=== PATIENT | male | born 1930 | race Caucasian/White ===

== ENCOUNTER → 2016-07-24 | Outpatient (CLI) | payer MEDICARE, OTHER ==
[2015-12-29 16:59] VITALS: BP 158/71
[~2016-07-24] MED LIST: AFLI2VIA IO; AMLO10TA2 PO; CALC-98 PO; CALC1TAB75 PO; CLON1PAT2 TD; FLEC100T PO; FURO-68 PO; FURO-69 PO; HYDR-2868 PO; HYDR-971 PO; HYDR1TAB10 PO; MAG DELAY64 MG PO; MECL25TA3 PO; NEBI10TA3 PO; OXYC1TAB PO; OXYC500S PO; OXYC5CAP3 PO; POTA20PA PO; POTA20PA8 PO; SIMV10TA PO; TAMS0.4C97 PO; VALS320T2 PO; VALS80TA3 PO; VIT1TABL34 PO; VITA1TAB3 PO; WARF1POW MC; WARF1TAB PO; WARF1TAB7 PO; WARF3TAB7 PO; WARF4TAB7 PO; WARF5TAB7 PO; WARF6TAB PO; WARF6TAB7 PO; ZOLP5TAB PO; magnesium
--- NOTE | 2016-07-24 16:11 | RAD ---
Indication: Pulmonary infiltrates. Technique: Axial images and coronal and sagittal reformatted images are provided. Comparison is from December 15, 2015. One or more of the following individualized dose reduction techniques were utilized for this examination: 1. Automated exposure control 2. Adjustment of the mA and/or kV according to patient size 3. Use of iterative reconstruction technique Findings: There is linear atelectasis or scarring in the lung bases. There is minimal apical scarring. There is granulomatous disease. There is a pulmonary nodule with groundglass halo in the left upper lobe on image 46 measuring 6 mm. Bandlike atelectasis or scarring is noted in the left upper lobe as well. No additional nodule is identified. There is no consolidation. There is no pleural effusion. Central airways are patent. There is atheromatous disease in the thoracic aorta. There is minimal coronary artery calcification. The heart is not enlarged. Calcified left hilar lymph nodes are noted. There is no definite hilar or mediastinal adenopathy on this noncontrast study. There is mild fatty infiltration of the liver. There are degenerative changes in the spine. Nodular densities noted previously in the left lung base have resolved. Impression: 1. Left upper lobe nodule may be inflammatory given groundglass halo, 3 month follow-up would be recommended per Fleischner Society. Finding is new from prior. 2. Linear band of atelectasis or scarring in the left upper lobe is stable. Apical scarring is stable. 3. Granulomatous disease.
== END | disposition home or self-care (01) ==
LOC: CT 14:07
PROVIDERS: ATTEND Internal Medicine Pulmonary Disease
DX: R91.8 Other nonspecific abnormal finding of lung field (principal); Z82.49 Family history of ischemic heart disease and other diseases of the circulatory system; Z87.891 Personal history of nicotine dependence
CPT/HCPCS: 71250

== ENCOUNTER → 2016-07-24 | Outpatient (CLI) | payer MEDICARE, OTHER ==
[2015-12-29 16:59] VITALS: BP 158/71
--- NOTE | 2016-07-24 16:23 | RAD ---
Indication: Hematuria. Technique: Renal ultrasound was performed. No comparison is available. Findings: Both kidneys measure at least 10.2 cm in length. Simple cysts in the left kidney measure up to 19 mm in size. Echogenic foci within the kidneys could represent vascular calcifications or nonobstructing stones in the collecting systems. No pelvicaliectasis is apparent. Bladder is only mildly distended and grossly unremarkable. Prostate calcification is noted. Impression: 1. Simple cysts in the left kidney. 2. Small echogenic foci within the kidneys could be calcifications, either vascular or nonobstructing renal calculi.
== END | disposition home or self-care (01) ==
LOC: US 14:03
PROVIDERS: ATTEND Family Medicine
DX: M54.9 Dorsalgia, unspecified (principal); N28.1 Cyst of kidney, acquired
CPT/HCPCS: 76770

== ENCOUNTER 2017-02-19 16:57 | Emergency (ER) | payer MEDICARE, OTHER ==
[~2017-02-19] VITALS: Ht 181.6 cm; Wt 88.0 kg
[2017-02-19 16:57] VITALS: BP 185/79
[~2017-02-19 16:57] MED LIST changes: +OXYC5CAP PO; -OXYC5CAP3 PO; +POTA20PA21 PO; -POTA20PA8 PO; -WARF1TAB PO; +WARF1TAB74 PO
--- NOTE | 2017-02-19 18:27 | PHYS DOC ---
Past History Past Medical History: A-Fib, Hypertension, Prostatitis, TIA Past Surgical History: Appendectomy, TURP, Other Smoking: Non-smoker Alcohol Use: None Drug Use: None Adult General Chief Complaint Chief Complaint: POST-OP PROBLEM HPI HPI Patient is a 86 year old M who presents with left-sided facial "zinging pain". He did have a procedure including a biopsy and skin graft in the left ear 3 days ago. Starting this morning he has had episodes of pain lasting seconds that are not associated with any other symptoms. His pain is localized and does not radiate. He has no drainage, fever or other signs of infection Review of Systems Review of Systems Constitutional: Denies fever or chills [] Eyes: Denies change in visual acuity, redness, or eye pain [] HENT: Denies nasal congestion or sore throat [] Respiratory: Denies cough or shortness of breath [] Cardiovascular: No additional information not addressed in HPI [] GI: Denies abdominal pain, nausea, vomiting, bloody stools or diarrhea [] : Denies dysuria or hematuria [] Musculoskeletal: Denies back pain or joint pain [] Integument: Negative except history of present illness Neurologic: Denies headache, focal weakness or sensory changes [] Endocrine: Denies polyuria or polydipsia [] Family History Family History Noncontributory Current Medications Current Medications Medications reviewed Allergies Allergies Allergies Coded Allergies Type Severity Reaction Last Updated Verified Penicillins Allergy Severe 05/13/15 Yes Physical Exam Physical Exam Constitutional: Well developed, well nourished, no acute distress, non-toxic appearance. [] HENT: Normocephalic, left ear: Mild swelling noted around the pinna without obvious signs of infection. No drainage was noted. Wilfrido denied any symptoms at this time. Eyes: PERRLA, EOMI, conjunctiva normal, no discharge. [] Neck: Normal range of motion, no tenderness, supple, no stridor. [] Cardiovascular:Heart rate regular rhythm, Lungs & Thorax: Bilateral breath sounds clear to auscultation [] Neurologic: Alert and oriented X 3, normal motor function, normal sensory function, no focal deficits noted. [] Psychologic: Affect normal, judgement normal, mood normal. [] Current Patient Data Vital Signs Vital Signs Date Time Temp Pulse Resp B/P (MAP) Pulse Ox O2 Delivery O2 Flow Rate FiO2 02/19/17 16:57 98.4 68 18 94 Room Air EKG EKG [] Radiology/Procedures Radiology/Procedures His dressing was changed Course & Med Decision Making Course & Med Decision Making Pertinent Labs and Imaging studies reviewed. (See chart for details) [] Dragon Disclaimer Dragon Disclaimer This chart was dictated in whole or in part using Voice Recognition software in a busy, high-work load, and often noisy Emergency Department environment. It may contain unintended and wholly unrecognized errors or omissions. Departure Departure: Impression: Primary Impression: Visit for wound check Disposition: HOME, SELF-CARE Condition: STABLE Referrals: WM MONCADA (PCP) Patient Instructions: Wound Check Additional Instructions: Wilfrido was seen in the emergency room for pain after a dermatologic procedure. No emergency medical condition was found in history of physical exam. His wound was visualized and redressed. 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 Also advised return the emergency room if he develops new or worsening symptoms. CARLA SUAREZ MD Feb 19, 2017 18:27
== END 2017-02-19 19:00 | disposition home or self-care (01) ==
LOC: ER 16:57
DX: Z48.01 Encounter for change or removal of surgical wound dressing (principal); G89.18 Other acute postprocedural pain; H93.8X2 Other specified disorders of left ear; I10 Essential (primary) hypertension; I48.91 Unspecified atrial fibrillation; Z86.73 Personal history of transient ischemic attack (TIA), and cerebral infarction without residual deficits; Z88.0 Allergy status to penicillin
CPT/HCPCS: 99282

== ENCOUNTER → 2017-02-20 | Outpatient (CLI) | payer MEDICARE, OTHER ==
[2017-02-19 16:57] VITALS: BP 185/79
--- NOTE | 2017-02-20 16:00 | RAD ---
Indication pulmonary infiltrates. Axial noncontrast images of the chest were obtained and are compared to an examination 07/24/2016. Imaging through the upper abdomen is unremarkable. The thoracic aorta is grossly normal. Significant hilar or mediastinal adenopathy is not seen. Previously seen nodule in the left upper lobe is no longer apparent. The nodule, previously, was likely inflammatory in nature. Some pleural-parenchymal scarring in the left upper lobe has a stable appearance. There is some slight pleural-parenchymal scarring at the lung apices appearing similar. An acute finding in the chest is not seen. There is no dominant soft tissue mass. IMPRESSION: No acute finding apparent in the chest. Previously seen small nodule in the left upper lobe is no longer apparent and likely was inflammatory on the previous exam. Stable scarring in the left upper lobe and at the lung apices. PQRS Compliance Statement: One or more of the following individualized dose reduction techniques were utilized for this examination: 1. Automated exposure control 2. Adjustment of the mA and/or kV according to patient size 3. Use of iterative reconstruction technique
== END | disposition home or self-care (01) ==
LOC: CT 13:49
PROVIDERS: ATTEND Internal Medicine Pulmonary Disease
DX: J98.4 Other disorders of lung (principal); R91.1 Solitary pulmonary nodule; R91.8 Other nonspecific abnormal finding of lung field
CPT/HCPCS: 71250

== ENCOUNTER → 2017-02-20 | Outpatient (CLI) | payer MEDICARE, OTHER ==
[2017-02-19 16:57] VITALS: BP 185/79
--- NOTE | 2017-02-20 15:42 | RAD ---
Indication benign prostatic hypertrophy. Grayscale imaging targeted to the kidneys was performed. The right kidney measures 10.7 x 5.6 x 5.3 cm. No hydronephrosis or mass is seen. The left kidney measures 10.5 x 5.4 x 5.8 cm. No hydronephrosis or solid mass is seen. There are 2 hypoechoic masses, compatible with cysts, occupying the left kidney the largest measuring approximately 2 cm. The urinary bladder appears grossly normal. Mild enlargement of the prostate was seen. IMPRESSION: Normal right kidney. Simple cysts seen associated with the left kidney. No hydronephrosis is seen on either side.
== END | disposition home or self-care (01) ==
LOC: US 13:50
PROVIDERS: ATTEND Urology
DX: N28.1 Cyst of kidney, acquired (principal); N40.1 Benign prostatic hyperplasia with lower urinary tract symptoms; R33.8 Other retention of urine; R91.8 Other nonspecific abnormal finding of lung field
CPT/HCPCS: 76770

== ENCOUNTER → 2017-03-27 | Outpatient (CLI) | payer MEDICARE, OTHER ==
--- NOTE | 2017-03-27 16:35 | RAD ---
Left neck ultrasound, 03/27/2017: History: Upper left neck swelling The area of clinical concern in the region of the angle of the mandible was carefully scanned. A normal-sized 6 x 4 mm lymph node is seen. No enlarged lymph nodes, mass or abnormal fluid collection was seen in this region.
== END | disposition home or self-care (01) ==
LOC: US 13:37
PROVIDERS: ATTEND Physician Assistant
DX: R59.0 Localized enlarged lymph nodes (principal)
CPT/HCPCS: 76536

== ENCOUNTER → 2017-04-23 | Outpatient (CLI) | payer MEDICARE, OTHER ==
--- NOTE | 2017-04-23 15:46 | RAD ---
Indication: Back and hip pain. Technique: AP pelvis and lateral view of each hip is provided. Findings: Bony pelvis appears intact. Mild osteoarthritis is noted in each hip. No fracture or dislocation is identified. Joint space within both hips is maintained. Sclerotic lesion in the right ilium could be small bone island. 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 No evidence of an acute fracture.
--- NOTE | 2017-04-23 15:48 | RAD ---
Indication: Back pain. Technique: 3 views of the lumbosacral spine are submitted for review. No comparison is available. Findings: There is mild anterior wedging of L1 and L2. There is no acute fracture line apparent. There is prominent endplate spurring at L1-L2. There is also endplate spurring throughout the remainder of the lumbar spine. There is facet hypertrophy which is greatest at L4-L5 and L5-S1. There is no malalignment. There is bone demineralization. There are vascular calcifications. Impression: L1 and L2 compression fractures are favored to be chronic. If there is concern for acute fracture, consider MRI.
== END | disposition home or self-care (01) ==
LOC: PMG 13:56
PROVIDERS: ATTEND Physician Assistant
DX: M48.56XA Collapsed vertebra, not elsewhere classified, lumbar region, initial encounter for fracture (principal); M53.86 Other specified dorsopathies, lumbar region; M16.10 Unilateral primary osteoarthritis, unspecified hip
CPT/HCPCS: 72100; 73521

== ENCOUNTER → 2017-07-03 | Outpatient (CLI) | payer MEDICARE, OTHER ==
[~2017-07-03] MED LIST changes: +WARF-31 PO; +WARF1TAB69 PO; -WARF1TAB7 PO; +WARF3TAB50 PO; -WARF3TAB7 PO; -WARF5TAB7 PO
--- NOTE | 2017-07-03 14:40 | RAD ---
Left hip, 2 views, 07/03/2017: History: Hip pain Comparison is made to a study from 04/23/2017. There is mild unchanged narrowing of the right hip joint with mild marginal spurring. No fracture or dislocation is identified. The periarticular soft tissues are unremarkable. IMPRESSION: 1. Mild degenerative change at the left hip joint. 2. No acute bony abnormality is detected.
== END | disposition home or self-care (01) ==
LOC: PMG 14:14
PROVIDERS: ATTEND Physician Assistant
DX: M16.12 Unilateral primary osteoarthritis, left hip (principal)
CPT/HCPCS: 73502

== ENCOUNTER → 2017-07-08 | Outpatient (CLI) | payer MEDICARE, OTHER ==
--- NOTE | 2017-07-08 16:59 | CARD ---
MR#: [id number] Date of Study: 07/08/2017 Ordering Physician: DEBORAH LEONARDO, Referring Physician: DEBORAH LEONARDO, Tech: Saranya Grigsby RDCS APPROVED REPORT EXAM: Two-dimensional and M-mode echocardiogram with Doppler and color Doppler. Other Information Quality : Good INDICATION Atrial Fibrillation 2D DIMENSIONS RVDd3.5 (2.9-3.5cm)Left Atrium(2D)3.6 (1.6-4.0cm) IVSd1.4 (0.7-1.1cm)Aortic Root(2D)2.7 (2.0-3.7cm) LVDd5.4 (3.9-5.9cm)LVOT Diameter2.2 (1.8-2.4cm) PWd1.0 (0.7-1.1cm)LVDs3.9 (2.5-4.0cm) FS (%) 27.7 %SV75.4 ml LVEF(%)55.0 (>50%) Aortic Valve AoV Peak Gerry.110.2cm/sAoV VTI21.4cm AO Peak GR.4.9mmHgLVOT Peak Gerry.111.1cm/s LVOT VTI 22.74cmAO Mean GR.3mmHg LIZETH (VMAX)3.42kw4MOE (VTI)3.96cm2 Mitral Valve MV E Dcjfzafy64.6cm/sMV DECEL YJOI321ym MV A Eyeehdio00.2cm/sE/A Ratio0.6 Tricuspid Valve TR P. Ldhffhic689ut/sRAP GKAVJAAH2gdFb TR Peak Gr.94pyJeRRMP93xzAx Pulmonary Vein S1 Zecfuudb74.1cm/sD2 Xyhlctzf04.6cm/s LEFT VENTRICLE The left ventricle is normal size. There is mild asymmetric septal hypertrophy. The left ventricular systolic function is normal and the ejection fraction is within normal range. The Ejection Fraction i s 55-60%. There is normal LV segmental wall motion. Transmitral Doppler flow pattern is Grade I-abnor mal relaxation pattern. RIGHT VENTRICLE The right ventricle is normal size. The right ventricular systolic function is normal. ATRIA The left atrium size is normal. The right atrium size is normal. The interatrial septum is intact wit h no evidence for an atrial septal defect or patent foramen ovale as noted on 2-D or Doppler imaging. AORTIC VALVE The aortic valve is not well visualized. Doppler and Color Flow revealed no significant aortic regurg itation. There is no significant aortic valvular stenosis. MITRAL VALVE The mitral valve is calcified but opens well. There is no evidence of mitral valve prolapse. There is no mitral valve stenosis. Doppler and Color-flow revealed trace mitral regurgitation. TRICUSPID VALVE The tricuspid valve is normal in structure and function. Doppler and Color Flow revealed trace tricus pid regurgitation. The PA pressure was estimated at 28 mmHg. There is no tricuspid valve stenosis. PULMONIC VALVE The pulmonic valve is not well visualized. Doppler and Color Flow revealed no pulmonic valvular regur gitation. There is no pulmonic valvular stenosis. GREAT VESSELS The aortic root is normal in size. The ascending aorta is not well seen. The IVC is normal in size an d collapses >50% with inspiration. PERICARDIAL EFFUSION There is no evidence of significant pericardial effusion. Critical Notification Critical Value: No <Conclusion> The left ventricle is normal size. The left ventricular systolic function is normal and the ejection fraction is within normal range. The Ejection Fraction is 55-60%. There is mild asymmetric septal hypertrophy. There is no significant aortic valvular stenosis. Doppler and Color Flow revealed no significant aortic regurgitation. Doppler and Color-flow revealed trace mitral regurgitation. Doppler and Color Flow revealed trace tricuspid regurgitation. The PA pressure was estimated at 28 mmHg. Signed by : Adelso Ding MD Electronically Approved : 07/08/2017 16:59:07
== END | disposition home or self-care (01) ==
LOC: ECHO 10:48
PROVIDERS: ATTEND Internal Medicine Cardiovascular Disease
DX: I48.0 Paroxysmal atrial fibrillation (principal); I51.7 Cardiomegaly
CPT/HCPCS: 93306

== ENCOUNTER → 2017-07-17 | Outpatient (CLI) | payer MEDICARE, OTHER ==
[~2017-07-17] MED LIST changes: +BUPIVACAINE MPF 0.25% 10 ML VIAL. ONE; +IOHEXOL 300 MG/ML 50 ML VIAL. ONE; +LIDOCAINE 1% PF 30 ML VIAL. ONE; +MIDAZOLAM HCL PF 2 MG/2 ML VIAL. ONE; +methylPREDNISolone ACETATE 80 MG/ML VIAL. ONE
== END | disposition home or self-care (01) ==
LOC: SURG 13:50
PROVIDERS: ATTEND Anesthesiology Pain Medicine
DX: M16.12 Unilateral primary osteoarthritis, left hip (principal); I10 Essential (primary) hypertension; I48.0 Paroxysmal atrial fibrillation; Z88.0 Allergy status to penicillin; I50.32 Chronic diastolic (congestive) heart failure; G47.33 Obstructive sleep apnea (adult) (pediatric); N40.0 Benign prostatic hyperplasia without lower urinary tract symptoms; G62.9 Polyneuropathy, unspecified; Z85.828 Personal history of other malignant neoplasm of skin; Z79.01 Long term (current) use of anticoagulants; Z79.899 Other long term (current) drug therapy; Z90.49 Acquired absence of other specified parts of digestive tract; Z98.890 Other specified postprocedural states; Z87.891 Personal history of nicotine dependence; Z79.82 Long term (current) use of aspirin
CPT/HCPCS: 20610; 77002; 99152; J1040; J2001; J2250; J3010; J3490; Q9967; 20611

== ENCOUNTER → 2018-02-17 | Outpatient (CLI) | payer MEDICARE, OTHER ==
[~2018-02-17] MED LIST changes: -AMLO10TA2 PO; +AMLO10TA6 PO; -BUPIVACAINE MPF 0.25% 10 ML VIAL. ONE; -IOHEXOL 300 MG/ML 50 ML VIAL. ONE; -LIDOCAINE 1% PF 30 ML VIAL. ONE; -MIDAZOLAM HCL PF 2 MG/2 ML VIAL. ONE; -POTA20PA PO; +POTA20PA30 PO; +WARF4TAB64 PO; -WARF4TAB7 PO; +WARF6TAB47 PO; -WARF6TAB7 PO; -methylPREDNISolone ACETATE 80 MG/ML VIAL. ONE
--- NOTE | 2018-02-17 15:08 | RAD ---
CT of the chest without contrast 02/17/2018 INDICATION: Dry cough. History of pulmonary infiltrates. COMPARISON STUDY: CT of the chest without contrast February 20, 2017 Discussion: Multidetector CT imaging of the chest was performed without the admission of IV contrast. Heart size is normal. No significant pericardial effusion is identified. Scattered mediastinal lymph nodes are noted the appearance is unchanged from comparison study. Left perihilar lymph nodes are small, partially calcified. Findings most commonly reflect prior granulomatous disease. There is no pneumothorax or pleural effusion. Apical scarring is noted bilaterally. Large calcified granuloma is seen in the apical left upper lobe. Linear opacities in the left upper lobe are also stable from prior examination and likely reflects scarring. Mild scarring is seen in the lingula. No acute appearing infiltrate is identified. Mild right middle lobe and base of the right lower lobe scarring is seen. Limited visualization of the upper abdomen demonstrates no acute abnormality. No evidence of acute osseous abnormality is seen. IMPRESSION: Stable appearance of the chest without evidence of acute cardiopulmonary process. CT DOSING PQRS STATEMENT: One or more of the following individualized dose reduction techniques were utilized for this examination: 1. Automated exposure control 2. Adjustment of the mA and/or kV according to patient size 3. Use of iterative reconstruction technique Electronically signed by: Chito Hood MD (02/17/2018 3:05 PM) [id number]
== END | disposition home or self-care (01) ==
LOC: CT 13:08
PROVIDERS: ATTEND Internal Medicine Pulmonary Disease
DX: J84.10 Pulmonary fibrosis, unspecified (principal); R05 Cough; R91.8 Other nonspecific abnormal finding of lung field
CPT/HCPCS: 71250

== ENCOUNTER 2018-04-13 14:44 | Emergency (ER) | payer MEDICARE, OTHER ==
[~2018-04-13] VITALS: Ht 181.6 cm; Wt 88.0 kg
[~2018-04-13 14:44] MED LIST changes: +HYDR-3165 PO; -HYDR-971 PO
--- NOTE | 2018-04-13 15:07 | EKG ---
[address] [address] Test Date: 2018-04-13 Test Time: 14:52:45 Pat Name: AMADO NEVILLE Department: Room: Gender: M [employer]: : [id number] Requested By: KATIUSKA KENYON Order Number: [id number] Reading MD: Adelso Ding Measurements Intervals [place] Rate: 76 P: 90 FL: 222 QRS: -52 QRSD: 116 T: 50 QT: 420 QTc: 477 Interpretive Statements SINUS RHYTHM PROLONGED FL INTERVAL ABNORMAL LEFT AXIS DEVIATION LEFT ANTERIOR FASCICULAR BLOCK PROLONGED QT Electronically Signed On 04-22-2018 10:32:37 [employer] by Adelso Ding
[2018-04-13 15:40] LABS: BASO # 0.1 x10^3/uL (0.0-0.2); BASO % 1 % (0-3); EOS # 0.1 x10^3/uL (0.0-0.7); EOS % 2 % (0-3); HEMATOCRIT 37.6 % (39.0-53.0); HEMOGLOBIN 12.8 g/dL (13.0-17.5); LYMPH # 1.4 x10^3/uL (1.0-4.8); LYMPH % 20 % (24-48); MEAN CORPUSCULAR HEMOGLOBIN 30 pg (25-35); MEAN CORPUSCULAR HGB CONC 34 g/dL (31-37); MEAN CORPUSCULAR VOLUME 89 fL (79-100); MONO # 0.6 x10^3/uL (0.0-1.1); MONO % 9 % (0-9); NEUT # 4.7 x10^3uL (1.8-7.7); NEUT % 68 % (31-73); PLATELET COUNT 156 x10^3/uL (140-400); RED BLOOD COUNT 4.21 x10^6/uL (4.30-5.70); RED CELL DISTRIBUTION WIDTH 14.8 % (11.5-14.5); WHITE BLOOD COUNT 6.9 x10^3/uL (4.0-11.0)
[2018-04-13 15:57] LABS: ALBUMIN/GLOBULIN RATIO 0.8 (1.0-1.7); CALCIUM 8.5 mg/dL (8.5-10.1); GFR 70.5; MAGNESIUM 2.3 mg/dL (1.8-2.4); POTASSIUM 4.4 mmol/L (3.5-5.1); TOTAL BILIRUBIN 0.3 mg/dL (0.2-1.0); TOTAL PROTEIN 6.6 g/dL (6.4-8.2)
--- NOTE | 2018-04-13 16:05 | RAD ---
CT Head without contrast 04/13/2018 3:38 PM Indication: Fall today. Pt hit head Comparison: CT of the head without contrast November 16, 2014 Findings: No intracranial hemorrhage is seen. No evidence of acute territorial infarct is seen. Note that CT is limited in sensitivity for acute ischemia. For patient age there is very mild atrophic change noted. There is minimal patchy periventricular and inflammatory hypoattenuation which is nonspecific but most commonly relates to chronic small vessel disease. No abnormal extra axial fluid collection is identified. No mass effect or midline shift is seen. No acute osseous abnormalities are seen. Impression: No evidence of acute intracranial abnormality. CT DOSING PQRS STATEMENT: One or more of the following individualized dose reduction techniques were utilized for this examination: 1. Automated exposure control 2. Adjustment of the mA and/or kV according to patient size 3. Use of iterative reconstruction technique Electronically signed by: Chito Hood MD (04/13/2018 4:02 PM) [id number]
--- NOTE | 2018-04-13 16:30 | RAD ---
2 view study of the left femur and two-view study of the right femur Clinical indications: Fall. Bilateral femur pain. Left femur: No acute fracture or dislocation or lytic process is seen. Right femur: No acute fracture or dislocation or lytic process is seen. IMPRESSION: No acute fracture. Electronically signed by: Alan Tang MD (04/13/2018 4:27 PM) [id number]
--- NOTE | 2018-04-13 17:18 | PHYS DOC ---
Past History Past Medical History: A-Fib, Hypertension, Prostatitis, TIA Past Surgical History: Appendectomy, TURP, Other Smoking: Non-smoker Alcohol Use: None Drug Use: None Adult General Chief Complaint Chief Complaint: LOWER EXTREMITY Pain [facility] HPI Patient is a 87 year old male who presents with complaining of bilateral thigh pain after he had a fall 3 days ago. Patient states he had an accidental fall from his chair at his bedroom 3 days ago without head injury or loss of consciousness and complaining of pain in bilateral tight with walking and bearing weight without sign of injury or deformity. Patient denies any pain without bearing weight and rated his pain as a 6/10 with standing up. Patient currently taking hydrocodone regarding chronic neck pain and also because of history of A. fib taking Coumadin. Review of Systems Review of Systems Constitutional: Denies fever or chills [] Eyes: Denies change in visual acuity, redness, or eye pain [] HENT: Denies nasal congestion or sore throat [] Respiratory: Denies cough or shortness of breath [] Cardiovascular: No additional information not addressed in HPI [] GI: Denies abdominal pain, nausea, vomiting, bloody stools or diarrhea [] : Denies dysuria or hematuria [] Musculoskeletal: Denies back pain or joint pain , reports extremity pain[] Integument: Denies rash or skin lesions [] Neurologic: Denies headache, focal weakness or sensory changes [] Endocrine: Denies polyuria or polydipsia [] All other systems were reviewed and found to be within normal limits, except as documented in this note. Allergies Allergies Allergies Coded Allergies Type Severity Reaction Last Updated Verified Penicillins Allergy Severe 05/13/15 Yes Physical Exam Physical Exam Constitutional: Well developed, well nourished, no acute distress, non-toxic appearance. [] HENT: Normocephalic, atraumatic Eyes: PERRLA, EOMI, conjunctiva normal, no discharge. [] Neck: Normal range of motion, no tenderness, supple, no stridor. [] Cardiovascular:Heart rate regular rhythm, no murmur [] Lungs & Thorax: Bilateral breath sounds clear to auscultation [] Abdomen: Bowel sounds normal, soft, no tenderness, no masses, no pulsatile masses. [] Skin: Warm, dry, no erythema, no rash. [] Back: No tenderness, no CVA tenderness. [] Extremities: Bilateral thigh muscle tenderness without sign of ecchymosis or deformity, normal range of motion, left medial toe ecchymoses and marked tenderness without deformity, no cyanosis, no clubbing, ROM intact, no edema. [ ] Neurologic: Alert and oriented X 3, normal motor function, normal sensory function, no focal deficits noted. [] Psychologic: Affect normal, judgement normal, mood normal. [] Current Patient Data Vital Signs Vital Signs Date Time Temp Pulse Resp B/P (MAP) Pulse Ox O2 Delivery O2 Flow Rate FiO2 04/13/18 14:45 97.8 77 18 97 Room Air Lab Results Laboratory Tests Test 04/13/18 15:22 White Blood Count 6.9 x10^3/uL (4.0-11.0) Red Blood Count 4.21 x10^6/uL (4.30-5.70) L Hemoglobin 12.8 g/dL (13.0-17.5) L Hematocrit 37.6 % (39.0-53.0) L Mean Corpuscular Volume 89 fL (79-100) Mean Corpuscular Hemoglobin 30 pg (25-35) Mean Corpuscular Hemoglobin Concent 34 g/dL (31-37) Red Cell Distribution Width 14.8 % (11.5-14.5) H Platelet Count 156 x10^3/uL (140-400) Neutrophils (%) (Auto) 68 % (31-73) Lymphocytes (%) (Auto) 20 % (24-48) L Monocytes (%) (Auto) 9 % (0-9) Eosinophils (%) (Auto) 2 % (0-3) Basophils (%) (Auto) 1 % (0-3) Neutrophils # (Auto) 4.7 x10^3uL (1.8-7.7) Lymphocytes # (Auto) 1.4 x10^3/uL (1.0-4.8) Monocytes # (Auto) 0.6 x10^3/uL (0.0-1.1) Eosinophils # (Auto) 0.1 x10^3/uL (0.0-0.7) Basophils # (Auto) 0.1 x10^3/uL (0.0-0.2) Prothrombin Time 14.4 SEC (9.4-11.4) H Prothrombin Time INR 1.5 (0.9-1.1) H Sodium Level 139 mmol/L (136-145) Potassium Level 4.4 mmol/L (3.5-5.1) Chloride Level 102 mmol/L (98-107) Carbon Dioxide Level 30 mmol/L (21-32) Anion Gap 7 (6-14) Blood Urea Nitrogen 16 mg/dL (8-26) Creatinine 1.0 mg/dL (0.7-1.3) Estimated GFR (Cockcroft-Gault) 70.5 BUN/Creatinine Ratio 16 (6-20) Glucose Level 111 mg/dL (70-99) H Calcium Level 8.5 mg/dL (8.5-10.1) Magnesium Level 2.3 mg/dL (1.8-2.4) Total Bilirubin 0.3 mg/dL (0.2-1.0) Aspartate Amino Transferase (AST) 28 U/L (15-37) Alanine Aminotransferase (ALT) 35 U/L (16-63) Alkaline Phosphatase 125 U/L (46-116) H Creatine Kinase 80 U/L (39-308) Troponin I Quantitative < 0.017 ng/mL (0-0.055) RT-Sqp-G-Type Natriuretic Peptide 462 pg/mL (0-449) H Total Protein 6.6 g/dL (6.4-8.2) Albumin 3.0 g/dL (3.4-5.0) L Albumin/Globulin Ratio 0.8 (1.0-1.7) L EKG EKG EKG interpreted by me. EKG at 1452 showed sinus rhythm at rate of 76, prolonged WA interval at 222, abnormal left axis deviation, left anterior fascicular block , prolonged QT at 420, no acute ST and T-wave abnormalities. Radiology/Procedures Radiology/Procedures [address] [address] IMAGING REPORT Signed PATIENT: AMADO NEVILLE ACCOUNT: [id number] : 1930 LOCATION: ER AGE: 87 SEX: M EXAM STATUS: REG ER ORD. PHYSICIAN: KATIUSKA KENYON MD REASON: fall PROCEDURE: CT HEAD WO CONTRAST CT Head without contrast 04/13/2018 3:38 PM Indication: Fall today. Pt hit head Comparison: CT of the head without contrast November 16, 2014 Findings: No intracranial hemorrhage is seen. No evidence of acute territorial infarct is seen. Note that CT is limited in sensitivity for acute ischemia. For patient age there is very mild atrophic change noted. There is minimal patchy periventricular and inflammatory hypoattenuation which is nonspecific but most commonly relates to chronic small vessel disease. No abnormal extra axial fluid collection is identified. No mass effect or midline shift is seen. No acute osseous abnormalities are seen. Impression: No evidence of acute intracranial abnormality. CT DOSING PQRS STATEMENT: One or more of the following individualized dose reduction techniques were utilized for this examination: 1. Automated exposure control 2. Adjustment of the mA and/or kV according to patient size 3. Use of iterative reconstruction technique Electronically signed by: Chito Jones MD (04/13/2018 4:02 PM) [facility] DICTATED AND SIGNED BY: CHITO JONES MD DATE: 04/13/18 1892 CC: KATIUSKA KENYON MD; [facility] [place] ~ [place] [address] IMAGING REPORT Signed PATIENT: AMADO NEVILLE ACCOUNT: [id number] : 1930 LOCATION: ER AGE: 87 SEX: M EXAM STATUS: REG ER ORD. PHYSICIAN: KATIUSKA KENYON MD REASON: fall PROCEDURE: FEMUR BILAT 2 view study of the left femur and two-view study of the right femur Clinical indications: Fall. Bilateral femur pain. Left femur: No acute fracture or dislocation or lytic process is seen. Right femur: No acute fracture or dislocation or lytic process is seen. IMPRESSION: No acute fracture. Electronically signed by: Obie Tang MD (04/13/2018 4:27 PM) [facility] DICTATED AND SIGNED BY: OBIE TANG MD DATE: 04/13/18 [id number] CC: KATIUSKA KENYON MD; [facility] ~ Course & Med Decision Making Course & Med Decision Making Pertinent Labs and Imaging studies reviewed. (See chart for details) Evaluation of patient in ER showed 87-year-old male patient with complaining of a fall and injury to bilateral tight and left middle toe. Patient had ecchymosis of the left middle toe without other sign of injuries patient had INR of 1.5 on Coumadin with sinus rhythm. Patient struck the to continue his home pain medication/ hydrocodone and upright ice on the affected area and use his walker for prevention of fall. Dragon Disclaimer Dragon Disclaimer This electronic medical record was generated, in whole or in part, using a voice recognition dictation system. Departure Departure: Impression: Primary Impression: Muscle strain of thigh Additional Impressions: Contusion of toe of left foot Fall at home Anticoagulated on Coumadin Disposition: HOME, SELF-CARE (at 1715) Condition: STABLE Referrals: [facility] (PCP) Patient Instructions: 2,3 Diphosphoglycerate, Contusion, Fall Prevention and Home Safety, Muscle Strain Additional Instructions: Apply ice at affected area Follow-up with your primary care physician in 3-5 days Return to ER if not getting better Continue home medication Use your walker Problem Qualifiers KATIUSKA KENYON MD Apr 13, 2018 17:18
[2018-04-13 17:52] VITALS: BP 156/72
--- NOTE | 2018-04-13 22:05 | RAD ---
3 views left toes dated 04/13/2018. No comparison available. CLINICAL INDICATION: Pain after injury. FINDINGS: 3 views of left second and third toe show flexion deformity at the second PIP joint. Bony alignment is otherwise anatomic. Mild hypertrophic change of the interphalangeal joints throughout. Mild degenerative change of the Lisfranc joints. No apparent fracture. IMPRESSION: 1. No evidence of displaced fracture. 2. Mild flexion deformity at the second PIP joint could be positional or related to joint laxity and/or tendon dysfunction. Correlate clinically. Electronically signed by: Neri Liao MD (04/13/2018 10:02 PM) [facility]
== END 2018-04-13 17:52 | disposition home or self-care (01) ==
LOC: ER 14:44
DX: S76.912A Strain of unspecified muscles, fascia and tendons at thigh level, left thigh, initial encounter (principal); S76.911A Strain of unspecified muscles, fascia and tendons at thigh level, right thigh, initial encounter; S90.122A Contusion of left lesser toe(s) without damage to nail, initial encounter; M54.2 Cervicalgia; G89.29 Other chronic pain; R51 Headache; I10 Essential (primary) hypertension; I48.91 Unspecified atrial fibrillation; Z86.73 Personal history of transient ischemic attack (TIA), and cerebral infarction without residual deficits; Z79.01 Long term (current) use of anticoagulants; Z88.0 Allergy status to penicillin; W07.XXXA Fall from chair, initial encounter; Y93.89 Activity, other specified; Y92.092 Bedroom in other non-institutional residence as the place of occurrence of the external cause; Y99.8 Other external cause status
CPT/HCPCS: 36415; 70450; 73660; 80053; 82550; 83735; 83880; 84484; 85025; 85610; 93005; 99284

== ENCOUNTER → 2018-07-17 | Outpatient (CLI) | payer MEDICARE, OTHER ==
[~2018-07-17] MED LIST changes: -AMLO10TA6 PO; +AMLO10TA8 PO
--- NOTE | 2018-07-17 12:00 | RAD ---
EXAM: Left shoulder, 3 views. HISTORY: Pain. COMPARISON: None. FINDINGS: 3 views left shoulder obtained. There is no fracture, dislocation or subluxation. There is a calcified granuloma within the left upper lobe. There is linear left upper lobe atelectasis or scarring. IMPRESSION: No acute osseous finding. Electronically signed by: Mili Villavicencio MD (07/17/2018 11:57 AM) [facility]
== END | disposition home or self-care (01) ==
LOC: RAD 10:08
PROVIDERS: ATTEND Physician Assistant
DX: M25.512 Pain in left shoulder (principal); J84.10 Pulmonary fibrosis, unspecified
CPT/HCPCS: 73030

== ENCOUNTER → 2018-08-07 | Outpatient (CLI) | payer MEDICARE, OTHER | END | disposition home or self-care (01) | LOC: SURG 10:27 | PROVIDERS: ATTEND Anesthesiology Pain Medicine | DX: M25.512 Pain in left shoulder (principal); I10 Essential (primary) hypertension; Z79.899 Other long term (current) drug therapy | CPT/HCPCS: 99213 ==

== ENCOUNTER 2018-11-14 03:33 | Emergency (ER) | payer MEDICARE, OTHER ==
[~2018-11-14] VITALS: Ht 177.8 cm; Wt 87.3 kg
--- NOTE | 2018-11-14 03:37 | ED.ADGEN ---
Past History Past Medical History: A-Fib, Arthritis, Cancer, Hypertension, Prostatitis, TIA, Other Past Surgical History: Appendectomy, TURP, Other Smoking: Non-smoker Alcohol Use: None Drug Use: None Adult General Chief Complaint Chief Complaint ".. I got some skin cancer's taken off.. and this one area on my shoulder bleeding still...".." I am on coumadin and aspirin.. " HPI HPI Patient is a 88 year old male who presents with above hx and complaints bleeding from skin cancer excision site Rt. upper chest. Dressing removed, no active bleeding noted. Did have some veinous spotting. Pt. has resumed his aspirin and coumadin this night. Pt. has had recent reduction in his coumadin dosage to 6 a day. Pt. take the Coumadin for his hx of Afib. Aspirin also started by cardiology years ago. Hx. of Basal and Squamous cell cancer. Review of Systems Review of Systems Constitutional: Denies fever or chills [] Eyes: Denies change in visual acuity, redness, or eye pain [] HENT: Denies nasal congestion or sore throat [] Respiratory: Denies cough or shortness of breath [] Cardiovascular: No additional information not addressed in HPI [] GI: Denies abdominal pain, nausea, vomiting, bloody stools or diarrhea [] : Denies dysuria or hematuria [] Musculoskeletal: Hx of chronic back pain or joint pain [] Integument: Hx. of Basal and Squamous cell skin lesions []Complaints of bleeding from surgery site. Neurologic: Denies headache, focal weakness or sensory changes [] Endocrine: Denies polyuria or polydipsia [] All other systems were reviewed and found to be within normal limits, except as documented in this note. Family History Family History Non-contributory Current Medications Current Medications Current Medications Medications (Trade) Dose Ordered Sig/Bonifacio Start Time Stop Time Status Last Admin Dose Admin Gelatin (Gelfoam Size 12-7mm) 1 each 1X ONCE 11/14/18 04:15 11/14/18 04:16 DC 11/14/18 04:08 1 EACH Allergies Allergies Allergies Coded Allergies Type Severity Reaction Last Updated Verified Penicillins Allergy Severe 05/13/15 Yes Physical Exam Physical Exam Constitutional: , no acute distress, non-toxic appearance. [] HENT: Normocephalic, atraumatic, bilateral external ears normal, oropharynx moist, no oral exudates, nose normal. Multiple old surgery scar for skin cancer. Dressing on Rt ear. Hearing aid in left ear Eyes: PERRLA, EOMI, conjunctiva normal, no discharge. [] Hx of chronic vision loss. Neck: Normal range of motion, no tenderness, supple, no stridor. [] Cardiovascular:Heart rate regular rhythm, no murmur []PMI to Lt. Lungs & Thorax: Bilateral breath sounds equal at apex on auscultation []Suture line stable. Min. Spotting from suture site Abdomen: Bowel sounds normal, soft, no tenderness, no masses, no pulsatile masses. [] Left posterior flank healing area of ecchymosis. Old surgery scars. Skin: Warm, dry, no erythema, no rash. Multiple skin scars Back: No tenderness, no CVA tenderness. [] Extremities: No tenderness, no cyanosis, no clubbing, ROM intact, no edema. [] Arthritic changes. Large scar palm right hand. Has wide gait. Neurologic: Alert and oriented X 3, normal motor function, normal sensory function, no focal deficits noted. [] Psychologic: Affect anxious, judgement normal, mood normal. [] Current Patient Data Vital Signs Vital Signs Date Time Temp Pulse Resp B/P (MAP) Pulse Ox O2 Delivery O2 Flow Rate FiO2 11/14/18 04:40 88 20 158/74 (102) 95 Room Air 11/14/18 03:40 98.0 EKG EKG [] Radiology/Procedures Radiology/Procedures [] Course & Med Decision Making Course & Med Decision Making Pertinent Labs and Imaging studies reviewed. (See chart for details) Gelfoam placed over suture line and a pressure dressing applied with Misael wrap's. Recommend patient to hold aspirin per 2-3 days. Patient to hold Coumadin for 2 days. If rebleeds. Apply direct pressure for 15-30 minutes by the clock. Keep follow-up primary care. Return if any concerns. [] Final Impression Final Impression 1. Bleeding from suture line-chest[] Dragon Disclaimer Dragon Disclaimer This electronic medical record was generated, in whole or in part, using a voice recognition dictation system. Discharge Summary Visit Information Final Diagnosis Problems Medical Problems: (1) Bleeding Status: Acute (2) Postoperative bleeding from incision Status: Acute Brief Hospital Course Allergies Allergies Coded Allergies Type Severity Reaction Last Updated Verified Penicillins Allergy Severe 05/13/15 Yes Vital Signs Vital Signs Date Time Temp Pulse Resp B/P (MAP) Pulse Ox O2 Delivery O2 Flow Rate FiO2 11/14/18 04:40 88 20 158/74 (102) 95 Room Air 11/14/18 03:40 98.0 Brief Hospital Course Mr. Clark is a 88 old male who presented with bleeding from suture line. Discharge Information Condition at Discharge: Improved, Stable Disposition/Orders: D/C to Home Dischare Medications Current Medications Gelatin (Gelfoam Size 12-7mm) 1 each STK-MED ONCE .ROUTE ; Start 11/14/18 at 03:43; Stop 11/14/18 at 03:44; Status DC Gelatin (Gelfoam Size 12-7mm) 1 each 1X ONCE TP Last administered on 11/14/18at 04:08; Admin Dose 1 EACH; Start 11/14/18 at 04:15; Stop 11/14/18 at 04:16; Status DC Active Scripts Active Zocor (Simvastatin) 10 Mg Tablet 1 Tab PO QHS Reported Doxycycline Hyclate 100 Mg Tablet.dr 100 Mg PO BID Keatchie 5-325 Tablet (Hydrocodone Bit/Acetaminophen) 1 Each Tablet 1 Tab PO PRN Q6HRS PRN Irbesartan 300 Mg Tablet 300 Mg PO DAILY Cartia Xt (Diltiazem Hcl) 120 Mg Cap.er.24h 120 Mg PO DAILY Hydralazine Hcl 50 Mg Tablet 50 Mg PO BID [advair] Proair Hfa Inhaler (Albuterol Sulfate) 8.5 Gm Hfa.aer.ad 2 Puff INH PRN Q6HRS PRN Aspirin 81 Mg Tab.chew 81 Mg PO DAILY Preservision Areds Tablet (Vit A/Vit C/Vit E/Zinc/Copper) 1 Each Tablet 1 Each PO QID Ambien (Zolpidem Tartrate) 5 Mg Tablet 5 Mg PO PRN QHS PRN Warfarin Sodium 5 Mg Tablet 6 Tab PO [id number] Vitamin B Complex 1 Each Tablet 1 Each PO DAILY not given this admit may resume Flomax (Tamsulosin Hcl) 0.4 Mg Cap.er.24h 1 Cap PO DAILY last dose 7/8 pm next dose due 7/9 pm Calcium 600 + Vit D 200 Tablet (Calcium Carbonate/Vitamin D3) 1 Each Tablet 1 Each PO TID bone health last dose 11/17 am next dose due 11/17 pm Flecainide Acetate 100 Mg Tablet 100 Mg PO BID for atrial fibrillation last dose 11/17 am next dose due 11/17 pm Mag Delay (Magnesium Chloride) 64 Mg Tablet.er 128 Mg PO DAILY supplement last dose 11/17 am next dose due 11/18 am Discharge Summary Visit Information Final Diagnosis Problems Medical Problems: (1) Bleeding Status: Acute (2) Postoperative bleeding from incision Status: Acute Brief Hospital Course Allergies Allergies Coded Allergies Type Severity Reaction Last Updated Verified Penicillins Allergy Severe 05/13/15 Yes Vital Signs Vital Signs Date Time Temp Pulse Resp B/P (MAP) Pulse Ox O2 Delivery O2 Flow Rate FiO2 11/14/18 04:40 88 20 158/74 (102) 95 Room Air 11/14/18 03:40 98.0 Brief Hospital Course Mr. Clark is a 88 old male who presented with bleeding from skin cancer excision site on chest. Discharge Information Condition at Discharge: Improved, Stable Disposition/Orders: D/C to Home Dischare Medications Current Medications Gelatin (Gelfoam Size 12-7mm) 1 each STK-MED ONCE .ROUTE ; Start 11/14/18 at 03:43; Stop 11/14/18 at 03:44; Status DC Gelatin (Gelfoam Size 12-7mm) 1 each 1X ONCE TP Last administered on 11/14/18at 04:08; Admin Dose 1 EACH; Start 11/14/18 at 04:15; Stop 11/14/18 at 04:16; Status DC Active Scripts Active Zocor (Simvastatin) 10 Mg Tablet 1 Tab PO QHS Reported Doxycycline Hyclate 100 Mg Tablet.dr 100 Mg PO BID Keatchie 5-325 Tablet (Hydrocodone Bit/Acetaminophen) 1 Each Tablet 1 Tab PO PRN Q6HRS PRN Irbesartan 300 Mg Tablet 300 Mg PO DAILY Cartia Xt (Diltiazem Hcl) 120 Mg Cap.er.24h 120 Mg PO DAILY Hydralazine Hcl 50 Mg Tablet 50 Mg PO BID [advair] Proair Hfa Inhaler (Albuterol Sulfate) 8.5 Gm Hfa.aer.ad 2 Puff INH PRN Q6HRS PRN Aspirin 81 Mg Tab.chew 81 Mg PO DAILY Preservision Areds Tablet (Vit A/Vit C/Vit E/Zinc/Copper) 1 Each Tablet 1 Each PO QID Ambien (Zolpidem Tartrate) 5 Mg Tablet 5 Mg PO PRN QHS PRN Warfarin Sodium 5 Mg Tablet 6 Tab PO [id number] Vitamin B Complex 1 Each Tablet 1 Each PO DAILY not given this admit may resume Flomax (Tamsulosin Hcl) 0.4 Mg Cap.er.24h 1 Cap PO DAILY last dose 7/8 pm next dose due 7 pm Calcium 600 + Vit D 200 Tablet (Calcium Carbonate/Vitamin D3) 1 Each Tablet 1 Each PO TID bone health last dose 7/ am next dose due 7 pm Flecainide Acetate 100 Mg Tablet 100 Mg PO BID for atrial fibrillation last dose 11/17 am next dose due 7 pm Mag Delay (Magnesium Chloride) 64 Mg Tablet.er 128 Mg PO DAILY supplement last dose 7 am next dose due 7/10 am Dragon Disclaimer This chart was dictated in whole or in part using Voice Recognition software in a busy, high-work load, and often noisy Emergency Department environment. It may contain unintended and wholly unrecognized errors or omissions. Dragon Disclaimer This chart was dictated in whole or in part using Voice Recognition software in a busy, high-work load, and often noisy Emergency Department environment. It may contain unintended and wholly unrecognized errors or omissions. BOZENA MI MD Nov 14, 2018 03:37
[2018-11-14] MEDS ORDERED: GELATIN SPONGE SIZE 12-7MM SPONGE. ONE (03:43)
[2018-11-14] MEDS ORDERED: HYDR-2869 PO (03:56)
[2018-11-14] MEDS ORDERED: ALBU2.5V8 INH (03:56)
[2018-11-14] MEDS ORDERED: advair (03:56)
[2018-11-14] MEDS ORDERED: VIT1TABL34 PO (03:56)
[2018-11-14] MEDS ORDERED: ASPI-630 PO (03:56)
[2018-11-14] MEDS ORDERED: DILT120C71 PO (03:58)
[2018-11-14] MEDS ORDERED: IRBE300T3 PO (04:00)
[2018-11-14] MEDS ORDERED: HYDR-3165 PO (04:03)
[2018-11-14] MEDS ORDERED: DOXY100T9 PO (04:03)
[2018-11-14] MEDS ORDERED: GELATIN SPONGE SIZE 12-7MM SPONGE. TP ONE (04:15)
[2018-11-14 04:40] VITALS: BP 158/74
== END 2018-11-14 04:51 | disposition home or self-care (01) ==
LOC: ER 03:33
DX: L76.22 Postprocedural hemorrhage of skin and subcutaneous tissue following other procedure (principal); I48.91 Unspecified atrial fibrillation; M19.90 Unspecified osteoarthritis, unspecified site; I10 Essential (primary) hypertension; Z86.73 Personal history of transient ischemic attack (TIA), and cerebral infarction without residual deficits; Z85.828 Personal history of other malignant neoplasm of skin; Z79.01 Long term (current) use of anticoagulants; Z79.82 Long term (current) use of aspirin; Z88.0 Allergy status to penicillin
CPT/HCPCS: 99284

== ENCOUNTER 2018-11-15 01:52 | Emergency (ER) | payer MEDICARE, OTHER ==
[~2018-11-15] VITALS: Ht 177.8 cm; Wt 87.0 kg
[~2018-11-15 01:52] MED LIST changes: +ALBU2.5V8 INH; +ASPI-630 PO; +DILT120C71 PO; +DOXY100T9 PO; +HYDR-2869 PO; +IRBE300T3 PO; +advair
--- NOTE | 2018-11-15 01:55 | ED.ADGEN ---
Past History Past Medical History: A-Fib, Arthritis, Cancer, Coagulopathy, Hypertension, Prostatitis, TIA, Other Past Surgical History: Appendectomy, TURP, Other Smoking: Non-smoker Alcohol Use: None Drug Use: None Adult General Chief Complaint Chief Complaint ".. I felt like it was maybe bleeding again. so I came in to get it checked..." HPI HPI Patient is a 88 year old male who presents with above hx and complaints of chest suture line from skin surgery. Has some bleeding into the dressing. No bleeding out side of dressing. Still has the one point area of bleeding as previous exam after the surface clot and gel foam removed. Pt. has not taken Coumadin or Aspirin since yesterday. Daughter concerned she can see bleeding at dressing site. Review of Systems Review of Systems Constitutional: Denies fever or chills [] Eyes: Denies change in visual acuity, redness, or eye pain [] HENT: Denies nasal congestion or sore throat [] Respiratory: Denies cough or shortness of breath [] Cardiovascular: No additional information not addressed in HPI [] GI: Denies abdominal pain, nausea, vomiting, bloody stools or diarrhea [] : Denies dysuria or hematuria [] Musculoskeletal: Denies back pain or joint pain [] Integument: Denies rash or skin lesions [] Complaints of bleeding at suture chest site. Neurologic: Denies headache, focal weakness or sensory changes [] Endocrine: Denies polyuria or polydipsia [] All other systems were reviewed and found to be within normal limits, except as documented in this note. Family History Family History Non-contributory Current Medications Current Medications Current Medications Medications (Trade) Dose Ordered Sig/Bonifacio Start Time Stop Time Status Last Admin Dose Admin Gelatin (Gelfoam Size 12-7mm) 1 each STK-MED ONCE 11/15/18 02:18 11/15/18 02:19 DC Allergies Allergies Allergies Coded Allergies Type Severity Reaction Last Updated Verified Penicillins Allergy Severe 05/13/15 Yes Physical Exam Physical Exam Constitutional: , no acute distress, non-toxic appearance. [] HENT: Normocephalic, atraumatic, bilateral external ears normal, oropharynx moist, no oral exudates, nose normal. Dressing still intact on Rt. ear. Old surgery scars. Eyes: PERRLA, EOMI, conjunctiva normal, no discharge. [] Neck: Normal range of motion, no tenderness, supple, no stridor. [] Cardiovascular:Heart rate regular rhythm, systolic murmur , PMI to Lt. [] Lungs & Thorax: Bilateral breath sounds with apex auscultation [Had ]very minimal bleeding from suture line after removal of dressing. Abdomen: Bowel sounds normal, soft, no tenderness, no masses, no pulsatile masses. Scar. Skin: Warm, dry, no erythema, no rash. Multiple old surgery scars- hx. Basal and Squamous cell surgical procedure. Back: No tenderness, no CVA tenderness. [] Extremities: No tenderness, no cyanosis, no clubbing, ROM intact, no edema. Significant old scar Rt. palm. Arthritic changes. ] Neurologic: Alert and oriented X 3, normal motor function, normal sensory function, no focal deficits noted. [] Psychologic: Affect anxious, judgement normal, mood normal. [] Current Patient Data Vital Signs Vital Signs Date Time Temp Pulse Resp B/P (MAP) Pulse Ox O2 Delivery O2 Flow Rate FiO2 11/15/18 02:02 97.8 98 20 94 Room Air Lab Results Laboratory Tests Test 11/15/18 02:10 White Blood Count 8.1 x10^3/uL (4.0-11.0) Red Blood Count 4.29 x10^6/uL (4.30-5.70) L Hemoglobin 13.0 g/dL (13.0-17.5) Hematocrit 39.0 % (39.0-53.0) Mean Corpuscular Volume 91 fL (79-100) Mean Corpuscular Hemoglobin 30 pg (25-35) Mean Corpuscular Hemoglobin Concent 33 g/dL (31-37) Red Cell Distribution Width 15.4 % (11.5-14.5) H Platelet Count 169 x10^3/uL (140-400) Neutrophils (%) (Auto) 72 % (31-73) Lymphocytes (%) (Auto) 18 % (24-48) L Monocytes (%) (Auto) 8 % (0-9) Eosinophils (%) (Auto) 1 % (0-3) Basophils (%) (Auto) 1 % (0-3) Neutrophils # (Auto) 5.8 x10^3uL (1.8-7.7) Lymphocytes # (Auto) 1.5 x10^3/uL (1.0-4.8) Monocytes # (Auto) 0.7 x10^3/uL (0.0-1.1) Eosinophils # (Auto) 0.1 x10^3/uL (0.0-0.7) Basophils # (Auto) 0.1 x10^3/uL (0.0-0.2) Prothrombin Time 41.1 SEC (9.4-11.4) H Prothrombin Time INR 4.0 (0.9-1.1) H PTT 45 SEC (23-33) H Sodium Level 139 mmol/L (136-145) Potassium Level 3.7 mmol/L (3.5-5.1) Chloride Level 105 mmol/L (98-107) Carbon Dioxide Level 28 mmol/L (21-32) Anion Gap 6 (6-14) Blood Urea Nitrogen 17 mg/dL (8-26) Creatinine 1.0 mg/dL (0.7-1.3) Estimated GFR (Cockcroft-Gault) 70.4 Glucose Level 134 mg/dL (70-99) H Calcium Level 8.7 mg/dL (8.5-10.1) EKG EKG [] Radiology/Procedures Radiology/Procedures [] Course & Med Decision Making Course & Med Decision Making Pertinent Labs and Imaging studies reviewed. (See chart for details) Recommended patient leave dressing intact unless excessive bleeding. Follow-up INR in 24 hours. Take no aspirin or Coumadin. Call surgical clinic for earlier follow-up. Return if any concerns. If increasing INR may need reversal of coagulopathy. [] Final Impression Final Impression 1. Post Surgical Bleeding[] Rt. chest suture line 2. Elevate INR 4.0 3. Hx Afib. On Coumadin and Aspirin. 4. 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 Discharge Summary Visit Information Final Diagnosis Problems Medical Problems: (1) Post-op bleeding Status: Acute (2) Postoperative bleeding from incision Status: Acute Brief Hospital Course Allergies Allergies Coded Allergies Type Severity Reaction Last Updated Verified Penicillins Allergy Severe 05/13/15 Yes Vital Signs Vital Signs Date Time Temp Pulse Resp B/P (MAP) Pulse Ox O2 Delivery O2 Flow Rate FiO2 11/15/18 02:02 97.8 98 20 94 Room Air Lab Results Laboratory Tests Test 11/15/18 02:10 White Blood Count 8.1 x10^3/uL (4.0-11.0) Red Blood Count 4.29 x10^6/uL (4.30-5.70) Hemoglobin 13.0 g/dL (13.0-17.5) Hematocrit 39.0 % (39.0-53.0) Mean Corpuscular Volume 91 fL (79-100) Mean Corpuscular Hemoglobin 30 pg (25-35) Mean Corpuscular Hemoglobin Concent 33 g/dL (31-37) Red Cell Distribution Width 15.4 % (11.5-14.5) Platelet Count 169 x10^3/uL (140-400) Neutrophils (%) (Auto) 72 % (31-73) Lymphocytes (%) (Auto) 18 % (24-48) Monocytes (%) (Auto) 8 % (0-9) Eosinophils (%) (Auto) 1 % (0-3) Basophils (%) (Auto) 1 % (0-3) Neutrophils # (Auto) 5.8 x10^3uL (1.8-7.7) Lymphocytes # (Auto) 1.5 x10^3/uL (1.0-4.8) Monocytes # (Auto) 0.7 x10^3/uL (0.0-1.1) Eosinophils # (Auto) 0.1 x10^3/uL (0.0-0.7) Basophils # (Auto) 0.1 x10^3/uL (0.0-0.2) Prothrombin Time 41.1 SEC (9.4-11.4) Prothromb Time International Ratio 4.0 (0.9-1.1) Activated Partial Thromboplast Time 45 SEC (23-33) Sodium Level 139 mmol/L (136-145) Potassium Level 3.7 mmol/L (3.5-5.1) Chloride Level 105 mmol/L (98-107) Carbon Dioxide Level 28 mmol/L (21-32) Anion Gap 6 (6-14) Blood Urea Nitrogen 17 mg/dL (8-26) Creatinine 1.0 mg/dL (0.7-1.3) Estimated GFR (Cockcroft-Gault) 70.4 Glucose Level 134 mg/dL (70-99) Calcium Level 8.7 mg/dL (8.5-10.1) Brief Hospital Course Mr. Clark is a 88 old male who presented with [post surgical bleeding on chest suture line. Found to have INR 4.0 Discharge Information Condition at Discharge: Stable Disposition/Orders: D/C to Home Dischare Medications Current Medications Gelatin (Gelfoam Size 12-7mm) 1 each 1X ONCE TP Last administered on 11/15/18at 02:21; Admin Dose 1 EACH; Start 11/15/18 at 02:30; Stop 11/15/18 at 02:31; Status DC Gelatin (Gelfoam Size 12-7mm) 1 each STK-MED ONCE .ROUTE ; Start 11/15/18 at 02:18; Stop 11/15/18 at 02:19; Status DC Active Scripts Active Zocor (Simvastatin) 10 Mg Tablet 1 Tab PO QHS Reported Doxycycline Hyclate 100 Mg Tablet.dr 100 Mg PO BID [place] 5-325 Tablet (Hydrocodone Bit/Acetaminophen) 1 Each Tablet 1 Tab PO PRN Q6HRS PRN Irbesartan 300 Mg Tablet 300 Mg PO DAILY Cartia Xt (Diltiazem Hcl) 120 Mg Cap.er.24h 120 Mg PO DAILY Hydralazine Hcl 50 Mg Tablet 50 Mg PO BID [advair] Proair Hfa Inhaler (Albuterol Sulfate) 8.5 Gm Hfa.aer.ad 2 Puff INH PRN Q6HRS PRN Aspirin 81 Mg Tab.chew 81 Mg PO DAILY Preservision Areds Tablet (Vit A/Vit C/Vit E/Zinc/Copper) 1 Each Tablet 1 Each PO QID Ambien (Zolpidem Tartrate) 5 Mg Tablet 5 Mg PO PRN QHS PRN Warfarin Sodium 5 Mg Tablet 6 Tab PO [id number]-XDW-BPNI-SAT Vitamin B Complex 1 Each Tablet 1 Each PO DAILY not given this admit may resume Flomax (Tamsulosin Hcl) 0.4 Mg Cap.er.24h 1 Cap PO DAILY last dose 7/8 pm next dose due 7/9 pm Calcium 600 + Vit D 200 Tablet (Calcium Carbonate/Vitamin D3) 1 Each Tablet 1 Each PO TID bone health last dose 7/9 am next dose due 7/9 pm Flecainide Acetate 100 Mg Tablet 100 Mg PO BID for atrial fibrillation last dose 11/17 am next dose due 11/17 pm Mag Delay (Magnesium Chloride) 64 Mg Tablet.er 128 Mg PO DAILY supplement last dose 11/17 am next dose due 11/18 am Discharge Summary Visit Information Final Diagnosis Problems Medical Problems: (1) Post-op bleeding Status: Acute (2) Postoperative bleeding from incision Status: Acute Brief Hospital Course Allergies Allergies Coded Allergies Type Severity Reaction Last Updated Verified Penicillins Allergy Severe 05/13/15 Yes Vital Signs Vital Signs Date Time Temp Pulse Resp B/P (MAP) Pulse Ox O2 Delivery O2 Flow Rate FiO2 11/15/18 02:02 97.8 98 20 94 Room Air Lab Results Laboratory Tests Test 11/15/18 02:10 White Blood Count 8.1 x10^3/uL (4.0-11.0) Red Blood Count 4.29 x10^6/uL (4.30-5.70) Hemoglobin 13.0 g/dL (13.0-17.5) Hematocrit 39.0 % (39.0-53.0) Mean Corpuscular Volume 91 fL (79-100) Mean Corpuscular Hemoglobin 30 pg (25-35) Mean Corpuscular Hemoglobin Concent 33 g/dL (31-37) Red Cell Distribution Width 15.4 % (11.5-14.5) Platelet Count 169 x10^3/uL (140-400) Neutrophils (%) (Auto) 72 % (31-73) Lymphocytes (%) (Auto) 18 % (24-48) Monocytes (%) (Auto) 8 % (0-9) Eosinophils (%) (Auto) 1 % (0-3) Basophils (%) (Auto) 1 % (0-3) Neutrophils # (Auto) 5.8 x10^3uL (1.8-7.7) Lymphocytes # (Auto) 1.5 x10^3/uL (1.0-4.8) Monocytes # (Auto) 0.7 x10^3/uL (0.0-1.1) Eosinophils # (Auto) 0.1 x10^3/uL (0.0-0.7) Basophils # (Auto) 0.1 x10^3/uL (0.0-0.2) Prothrombin Time 41.1 SEC (9.4-11.4) Prothromb Time International Ratio 4.0 (0.9-1.1) Activated Partial Thromboplast Time 45 SEC (23-33) Sodium Level 139 mmol/L (136-145) Potassium Level 3.7 mmol/L (3.5-5.1) Chloride Level 105 mmol/L (98-107) Carbon Dioxide Level 28 mmol/L (21-32) Anion Gap 6 (6-14) Blood Urea Nitrogen 17 mg/dL (8-26) Creatinine 1.0 mg/dL (0.7-1.3) Estimated GFR (Cockcroft-Gault) 70.4 Glucose Level 134 mg/dL (70-99) Calcium Level 8.7 mg/dL (8.5-10.1) Brief Hospital Course Mr. Clark is a 88 old male who presented with bleeding from surgical suture line on chest. INR 4.0 Discharge Information Condition at Discharge: Stable Disposition/Orders: D/C to Home Dischare Medications Current Medications Gelatin (Gelfoam Size 12-7mm) 1 each 1X ONCE TP Last administered on 11/15/18at 02:21; Admin Dose 1 EACH; Start 11/15/18 at 02:30; Stop 11/15/18 at 02:31; Status DC Gelatin (Gelfoam Size 12-7mm) 1 each STK-MED ONCE .ROUTE ; Start 11/15/18 at 02:18; Stop 11/15/18 at 02:19; Status DC Active Scripts Active Zocor (Simvastatin) 10 Mg Tablet 1 Tab PO QHS Reported Doxycycline Hyclate 100 Mg Tablet.dr 100 Mg PO BID [place] 5-325 Tablet (Hydrocodone Bit/Acetaminophen) 1 Each Tablet 1 Tab PO PRN Q6HRS PRN Irbesartan 300 Mg Tablet 300 Mg PO DAILY Cartia Xt (Diltiazem Hcl) 120 Mg Cap.er.24h 120 Mg PO DAILY Hydralazine Hcl 50 Mg Tablet 50 Mg PO BID [advair] Proair Hfa Inhaler (Albuterol Sulfate) 8.5 Gm Hfa.aer.ad 2 Puff INH PRN Q6HRS PRN Aspirin 81 Mg Tab.chew 81 Mg PO DAILY Preservision Areds Tablet (Vit A/Vit C/Vit E/Zinc/Copper) 1 Each Tablet 1 Each PO QID Ambien (Zolpidem Tartrate) 5 Mg Tablet 5 Mg PO PRN QHS PRN Warfarin Sodium 5 Mg Tablet 6 Tab PO AXW-QVX-REVY-SAT Vitamin B Complex 1 Each Tablet 1 Each PO DAILY not given this admit may resume Flomax (Tamsulosin Hcl) 0.4 Mg Cap.er.24h 1 Cap PO DAILY last dose 7/8 pm next dose due 7 pm Calcium 600 + Vit D 200 Tablet (Calcium Carbonate/Vitamin D3) 1 Each Tablet 1 Each PO TID bone health last dose 11/17 am next dose due 11/17 pm Flecainide Acetate 100 Mg Tablet 100 Mg PO BID for atrial fibrillation last dose 11/17 am next dose due 11/17 pm Mag Delay (Magnesium Chloride) 64 Mg Tablet.er 128 Mg PO DAILY supplement last dose 11/17 am next dose due 11/18 am Dragon Disclaimer This chart was dictated in whole or in part using Voice Recognition software in a busy, high-work load, and often noisy Emergency Department environment. It may contain unintended and wholly unrecognized errors or omissions. Dragon Disclaimer This chart was dictated in whole or in part using Voice Recognition software in a busy, high-work load, and often noisy Emergency Department environment. It may contain unintended and wholly unrecognized errors or omissions. BOZENA MI MD Nov 15, 2018 01:54
[2018-11-15 02:02] VITALS: BP 144/78
[2018-11-15] MEDS ORDERED: GELATIN SPONGE SIZE 12-7MM SPONGE. ONE (02:18)
[2018-11-15] MEDS ORDERED: GELATIN SPONGE SIZE 12-7MM SPONGE. TP ONE (02:30)
[2018-11-15 02:33] LABS: BASO # 0.1 x10^3/uL (0.0-0.2); BASO % 1 % (0-3); EOS # 0.1 x10^3/uL (0.0-0.7); EOS % 1 % (0-3); LYMPH # 1.5 x10^3/uL (1.0-4.8); LYMPH % 18 % (24-48); MEAN CORPUSCULAR HEMOGLOBIN 30 pg (25-35); MEAN CORPUSCULAR HGB CONC 33 g/dL (31-37); MEAN CORPUSCULAR VOLUME 91 fL (79-100); MONO # 0.7 x10^3/uL (0.0-1.1); MONO % 8 % (0-9); NEUT # 5.8 x10^3uL (1.8-7.7); NEUT % 72 % (31-73); PLATELET COUNT 169 x10^3/uL (140-400); RED BLOOD COUNT 4.29 x10^6/uL (4.30-5.70); RED CELL DISTRIBUTION WIDTH 15.4 % (11.5-14.5); WHITE BLOOD COUNT 8.1 x10^3/uL (4.0-11.0)
[2018-11-15 02:35] LABS: CALCIUM 8.7 mg/dL (8.5-10.1); GFR 70.4; POTASSIUM 3.7 mmol/L (3.5-5.1)
== END 2018-11-15 03:52 | disposition home or self-care (01) ==
LOC: ER 01:52
DX: L76.22 Postprocedural hemorrhage of skin and subcutaneous tissue following other procedure (principal); R79.1 Abnormal coagulation profile; I48.91 Unspecified atrial fibrillation; I10 Essential (primary) hypertension; Z86.73 Personal history of transient ischemic attack (TIA), and cerebral infarction without residual deficits; Z85.828 Personal history of other malignant neoplasm of skin; Z79.01 Long term (current) use of anticoagulants; Z79.82 Long term (current) use of aspirin; Z88.0 Allergy status to penicillin
CPT/HCPCS: 36415; 80048; 85025; 85610; 85730; 99284

== ENCOUNTER → 2019-02-09 | Outpatient (CLI) | payer MEDICARE, OTHER ==
[~2019-02-09] MED LIST changes: +DOXY-96 PO; -DOXY100T9 PO
--- NOTE | 2019-02-09 13:52 | CARD ---
MR#: [id number] Date of Study: 02/09/2019 Ordering Physician: DEBORAH LEONARDO, Referring Physician: DEBORAH LEONARDO, Tech: Kayla Robb KERWIN APPROVED REPORT EXAM: Two-dimensional and M-mode echocardiogram with Doppler and color Doppler. Other Information Quality : Technically LimitedHR: 74bpm Rhythm : NSRTechnically limited study due to body habitus. INDICATION Syncope 2D DIMENSIONS RVDd2.9 (2.9-3.5cm)Left Atrium(2D)3.5 (1.6-4.0cm) IVSd1.2 (0.7-1.1cm)Aortic Root(2D)2.7 (2.0-3.7cm) LVDd5.6 (3.9-5.9cm)LVOT Diameter2.3 (1.8-2.4cm) PWd1.1 (0.7-1.1cm)LVDs3.8 (2.5-4.0cm) FS (%) 31.6 %SV88.9 ml LVEF(%)58.9 (>50%) M-Mode DIMENSIONS Left Atrium(MM)4.22 (2.5-4.0cm)Aortic Root3.44 (2.2-3.7cm) Aortic Valve AoV Peak Gerry.131.0cm/sAoV VTI26.5cm AO Peak GR.6.9mmHgLVOT Peak Gerry.89.8cm/s LVOT VTI 17.51cmAO Mean GR.4mmHg LIZETH (VMAX)2.06pt3UAX (VTI)2.68cm2 Mitral Valve MV E Xwznljif15.5cm/sMV DECEL [id number] MV A Hsgdtdxe63.2cm/sE/A Ratio0.7 Pulmonary Valve PV Peak Cevjewed79.8cm/sPV Peak Grad.2mmHg LEFT VENTRICLE The left ventricle is normal size. There is mild concentric left ventricular hypertrophy. The left ve ntricular systolic function is normal. The Ejection Fraction is 55-60%. There is normal LV segmental wall motion. Transmitral Doppler flow pattern is Grade I-abnormal relaxation pattern. RIGHT VENTRICLE The right ventricle is normal size. There is normal right ventricular wall thickness. The right ventr icular systolic function is normal. ATRIA The left atrium size is normal. The right atrium size is normal. The interatrial septum is intact wit h no evidence for an atrial septal defect or patent foramen ovale as noted on 2-D or Doppler imaging. AORTIC VALVE The aortic valve is not well visualized. The aortic valve is probably trileaflet. Doppler and Color F low revealed no significant aortic regurgitation. There is no significant aortic valvular stenosis. MITRAL VALVE The mitral valve is normal in structure and function. There is no evidence of mitral valve prolapse. There is no mitral valve stenosis. Doppler and Color-flow revealed trace mitral regurgitation. TRICUSPID VALVE The tricuspid valve is normal in structure and function. Doppler and Color Flow revealed no tricuspid valve regurgitation noted. There is no tricuspid valve prolapse or vegetation. There is no tricuspid valve stenosis. PULMONIC VALVE The pulmonic valve is not well visualized. GREAT VESSELS The aortic root is normal in size. The ascending aorta is normal in size. The IVC is normal in size a nd collapses >50% with inspiration. PERICARDIAL EFFUSION There is no evidence of significant pericardial effusion. Critical Notification Critical Value: No <Conclusion> The left ventricular systolic function is normal. The Ejection Fraction is 55-60%. There is normal LV segmental wall motion. Transmitral Doppler flow pattern is Grade I-abnormal relaxation pattern. Trace mitral regurgitation. There is no evidence of significant pericardial effusion. Signed by : Etienne Agrawal, Electronically Approved : 02/09/2019 13:51:59
--- NOTE | 2019-02-09 15:34 | RAD ---
MR#: [id number] Date of Study: 02/09/2019 Ordering Physician: DEBORAH COURTNEY, Referring Physician: DEBORAH COURTNEY, Tech: Gay Stauffer RVT, RUST APPROVED REPORT Patient Location: OUT-PATIENT Laterality:Bilateral Indications Syncope Grayscale images of the bilateral common carotid, external and internal carotid vessels do not demons trate any obvious evidence of obstructive disease. Normal spectral waveforms are noted with antegrade vertebral velocities bilaterally. Overall 0 to less than 50% stenosis by velocity criteria. Normal I CA to CCA ratios. Risk Factors Hypertension: Doppler Spectral Velocity Analysis Right Left pCCA 95/10 cm/spCCA 121/13 cm/s mCCA 81/14 cm/smCCA 84/10 cm/s dCCA 66/11 cm/sdCCA 81/12 cm/s ECA 93/8 cm/sECA 93/23 cm/s pICA 79/17 cm/spICA 85/24 cm/s Donna 73/17 cm/smICA 81/18 cm/s dICA 71/15 cm/sdICA 93/23 cm/s Vert. 39/8 cm/sVert. 43/10 cm/s ICA/CCA 0.83ICA/CCA 0.77 Critical Notification Critical Value: No <Conclusion> 1. No significant carotid occlusive disease bilaterally Signed by : Deborah Courtney, Electronically Approved : 02/09/2019 15:33:34
== END | disposition home or self-care (01) ==
LOC: ECHO 12:46
PROVIDERS: ATTEND Internal Medicine Cardiovascular Disease
DX: I51.7 Cardiomegaly (principal); R55 Syncope and collapse
CPT/HCPCS: 93306; 93880

== ENCOUNTER → 2019-03-31 | Outpatient (CLI) | payer MEDICARE, OTHER ==
[~2019-03-31] MED LIST changes: +MECL-75 PO; -MECL25TA3 PO
--- NOTE | 2019-03-31 17:21 | RAD ---
ELBOW LEFT 2V 03/31/2019 12:00 AM INDICATION: Left elbow pain COMPARISON: None available. TECHNIQUE: 2 views left elbow are provided. FINDINGS/ IMPRESSION: There is mild irregularity along the medial epicondyles. No definite fracture is visualized. Minimal elevation posterior fat pad may reflect elbow joint effusion. This could reflect occult fracture. Recommend repeat evaluation in 7-10 days versus cross-sectional imaging if symptoms persist. Enthesopathy noted along the olecranon. Electronically signed by: Jeanette Roque MD (03/31/2019 5:18 PM) [id number]
== END | disposition home or self-care (01) ==
LOC: DXRAD 12:25
PROVIDERS: ATTEND Physician Assistant
DX: M77.8 Other enthesopathies, not elsewhere classified (principal)
CPT/HCPCS: 73070

== ENCOUNTER → 2019-05-07 | Outpatient (CLI) | payer MEDICARE, OTHER ==
--- NOTE | 2019-05-07 13:05 | RAD ---
EXAM: Chest CT without intravenous contrast. HISTORY: Shortness of breath. TECHNIQUE: Computed tomographic images of the chest were obtained without contrast. Multiplanar reformatting was performed. *One or more of the following individualized dose reduction techniques were utilized for this examination: 1. Automated exposure control. 2. Adjustment of the mA and/or kV according to patient size. 3. Use of iterative reconstruction technique. COMPARISON: 02/17/2018. FINDINGS: The heart is normal in size. There is a normal caliber thoracic aorta and standard aortic arch branching pattern. There is no mediastinal or hilar lymphadenopathy. There are few calcified left hilar and suprahilar granulomas. There is no pneumothorax or pleural effusion. There is biapical nodular pleural thickening and slight calcification due to pleural parenchymal scarring. There is suspected pleural parenchymal scarring within the anterior lateral left upper lobe and lateral right lower lobe. There is posterior dependent and basilar atelectasis. There are 6 mm and 5 mm nodules along the right major fissure, likely due to fissural lymph nodes. There are few small nodules along the region of suspected pleural parenchymal scarring within the left upper lobe, the largest of which measure 5 mm. There is no acute finding involving the upper abdomen. There is a suspected small left renal cyst partially included on the [id number]. There are splenic granulomas. There are degenerative changes throughout the spine. There are mild chronic endplate depressions at multiple thoracic levels. There are multiple thoracic hemangiomas. IMPRESSION: 1. Stable chronic interstitial changes with biapical, anterior left upper lobe and lateral right lower lobe scarring. 2. Small nodules along the right pleural fissure, likely representing fissural lymph nodes. These are new compared to the prior study. Follow-up can be performed in 12 months to confirm stability if there are risk factors for pulmonary malignancy. 3. Healed granulomatous disease. Electronically signed by: Mili Villavicencio MD (05/07/2019 1:02 PM) [place] [id number]
== END | disposition home or self-care (01) ==
LOC: CT 11:20
PROVIDERS: ATTEND Internal Medicine Pulmonary Disease
DX: J92.9 Pleural plaque without asbestos (principal); J98.11 Atelectasis; D73.89 Other diseases of spleen; R91.8 Other nonspecific abnormal finding of lung field; M47.814 Spondylosis without myelopathy or radiculopathy, thoracic region
CPT/HCPCS: 71250

== ENCOUNTER → 2019-09-06 | Outpatient (CLI) | payer MEDICARE, OTHER ==
[~2019-09-06] MED LIST changes: +IRBE300T23 PO; -IRBE300T3 PO
--- NOTE | 2019-09-06 16:46 | RAD ---
Exam: Cervical and thoracic spine 2 views INDICATION: No injury. Pain for a couple weeks TECHNIQUE: Frontal and lateral views of the thoracic and lumbar spine. Comparisons: None FINDINGS: Cervical spine: Vertebral body heights are well-maintained. Grade 1 anterolisthesis of C4 on C5. Mild degenerative disc disease greatest at C6-C7. Mild bilateral facet arthropathy is noted in the cervical spine. Visualized paraspinal soft tissues are unremarkable. Thoracic spine: Mild compression of the T4, T5 and T6 vertebral bodies. No significant spondylotic change in the thoracic spine. Visualized paraspinal soft tissues are unremarkable. IMPRESSION: 1. Mild compression deformities involving the T4-T6 vertebral bodies, age indeterminant. Appeared to have mildly progressed since April of last year. 2. Mild spondylotic change in the cervical spine as described above. Electronically signed by: Sandra Cobian MD (09/06/2019 4:43 PM) [id number]
== END | disposition home or self-care (01) ==
LOC: PMG 16:03
PROVIDERS: ATTEND Family Medicine
DX: M50.323 Other cervical disc degeneration at C6-C7 level (principal); M47.812 Spondylosis without myelopathy or radiculopathy, cervical region; M43.8X4 Other specified deforming dorsopathies, thoracic region
CPT/HCPCS: 72040; 72072